=== PATIENT | male | born 1995 | race Caucasian/White ===

== ENCOUNTER 2020-11-08 15:11 | Emergency (ER) | payer SELFPAY ==
[~2020-11-08] VITALS: Ht 185.4 cm; Wt 86.2 kg
--- NOTE | 2020-11-08 16:36 | NUR ---
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
--- NOTE | 2020-11-08 17:07 | NUR ---
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 He has pain when working with his hands and is developing new difficulty holding things with his right hand, where he's also experiencing tingling. Pt presents in bilateral wrist braces which he says help with the pain. Will conitnue to monitor and wait for orders.
--- NOTE | 2020-11-08 17:19 | NUR ---
ERP to bedside for assessment.
[2020-11-08 18:50] VITALS: BP 127/78
== END 2020-11-08 18:52 | disposition home or self-care (01) ==
LOC: ED 18:03
DX: G56.01 Carpal tunnel syndrome, right upper limb (principal); R20.2 Paresthesia of skin
CPT/HCPCS: 99283